=== PATIENT | female | born 1960 | race Caucasian/White ===

== ENCOUNTER → 2017-01-14 | Outpatient (CLI) | payer OTHER ==
[~2017-01-14] MED LIST: OMNIPAQUE 350 MG/ML, 75ML BOTTLE ONE
== END | disposition home or self-care (01) ==
LOC: RAD 09:15
PROVIDERS: ATTEND Nurse Practitioner Family
DX: L02.01 Cutaneous abscess of face (principal); J32.2 Chronic ethmoidal sinusitis
CPT/HCPCS: 36415; 70487; 82565; Q9967